=== PATIENT | female | born 1985 | race Native Hawaiian/Other Pacific Islander ===

== ENCOUNTER 2021-04-10 09:46 | Emergency (ER) | payer OTHER ==
[~2021-04-10] VITALS: Ht 157.5 cm; Wt 69.9 kg
[2021-04-10 09:50] VITALS: BP 133/96; TEMP 98.1
--- NOTE | 2021-04-12 15:58 | NUR ---
1558- PATIENT CALLED TO CHECK ON COVID RESULTS. RESULTS GIVEN TO PATIENT AFTER VERIFYING DATE OF . NO FURTHER QUESTIONS ASKED.
== END 2021-04-10 11:00 | disposition home or self-care (01) ==
LOC: ED 09:46
DX: J02.0 Streptococcal pharyngitis (principal); Z20.822 Contact with and (suspected) exposure to COVID-19; F17.210 Nicotine dependence, cigarettes, uncomplicated
CPT/HCPCS: 87635; 87651; 96372; 99283; J0696; J1885; U0003